=== PATIENT | female | born 1980 | race African-American/Black ===

== ENCOUNTER 2018-03-04 23:58 | Emergency (ER) | payer MEDICAID ==
[~2018-03-04] VITALS: Ht 172.7 cm; Wt 137.0 kg
[~2018-03-04 23:58] MED LIST: LITHIUM; SEROQUEL
[2018-03-05 00:56] LABS: CLARITY URINE CLEAR (CLEAR); COLOR URINE YELLOW (YELLOW); KETONES URINE NEGATIVE (NEGATIVE); LEUKOCYTE ESTERASE URINE NEGATIVE (NEGATIVE); NITRITE URINE NEGATIVE (NEGATIVE); OCCULT BLOOD URINE 2+ (NEGATIVE); PROTEIN URINE 1+ (NEGATIVE); SPECIFIC GRAVITY URINE 1.026 (1.005-1.030); UROBILINOGEN URINE 0.2 E.U./dL (0.2-1.0)
[2018-03-05 01:02] LABS: BASOPHILS % 0.8 % (0.0-2.0); EOSINOPHILS % 7.9 % (0.0-5.0); HEMATOCRIT. 35.8 % (36.0-48.0); HEMOGLOBIN. 11.8 g/dL (12.0-16.0); MEAN CORPUSCULAR HEMOGLOBIN 27.4 pg (28.0-32.0); MEAN CORPUSCULAR VOLUME 83.2 fL (81.0-99.0); MONOCYTES % 7.7 % (2.0-8.0); NEUTROPHILS % 53.6 % (40.0-76.0); PLATELET 182 x1000/uL (130-400); RED CELL DISTRIBUTION WIDTH 17.4 % (11.6-14.6)
[2018-03-05 01:05] LABS: CHLORIDE 108 mEq/L (98-107)
[2018-03-05 01:07] LABS: *AMPHETAMINES SCREEN URINE NEGATIVE (NEGATIVE); *BARBITURATES SCREEN URINE NEGATIVE (NEGATIVE); *BENZODIAZEPINES SCREEN URINE NEGATIVE (NEGATIVE); *COCAINE SCREEN URINE NEGATIVE (NEGATIVE); METHADONE URINE SCREEN NEGATIVE (NEGATIVE); OPIATES URINE SCREEN NEGATIVE (NEGATIVE)
[2018-03-05 01:08] LABS: CANNABINOID URINE SCREEN NEGATIVE (NEGATIVE)
[2018-03-05 01:09] LABS: ETHANOL BLOOD < 10 mg/dL
[2018-03-05 01:23] VITALS: BP 170/102
[2018-03-05 01:23] LABS: PHENCYCLIDINE URINE SCREEN PRESUMTIVE POSITIVE (NEGATIVE)
== END 2018-03-05 01:40 | disposition home or self-care (01) ==
LOC: ER 23:58
DX: R41.82 Altered mental status, unspecified (principal); E11.9 Type 2 diabetes mellitus without complications; F32.9 Major depressive disorder, single episode, unspecified
CPT/HCPCS: 36415; 80053; 80305; 81003; 81025; 84443; 85025; 93005; 99285; G0482; Z7610

== ENCOUNTER 2018-03-17 02:08 | Emergency (ER) | payer MEDICAID ==
[~2018-03-17] VITALS: Ht 177.8 cm; Wt 122.0 kg
[2018-03-17 03:42] VITALS: BP 199/115
== END 2018-03-17 05:25 | disposition home or self-care (01) ==
LOC: ER 02:08
DX: R41.82 Altered mental status, unspecified (principal)
CPT/HCPCS: 99283; 99284

== ENCOUNTER 2018-10-09 17:47 | Emergency (ER) | payer MEDICAID ==
[~2018-10-09] VITALS: Ht 177.8 cm; Wt 150.0 kg
[~2018-10-09 17:47] MED LIST changes: +ACETAMINOPHEN 325MG TABLET ONE
[2018-10-09] MEDS ORDERED: KETOROLAC 30MG/ML VIAL IV STA (18:47)
[2018-10-09] MEDS ORDERED: SODIUM CHLORIDE 0.9% 1000ML BAG (SEPSIS BOLUS) IV ONE (19:00)
[2018-10-09 21:29] LABS: BASOPHILS % 0.2 % (0.0-2.0); EOSINOPHILS % 3.5 % (0.0-5.0); HEMATOCRIT. 37.5 % (36.0-48.0); HEMOGLOBIN. 12.2 g/dL (12.0-16.0); LYMPHOCYTES % 7.1 % (20.0-50.0); MEAN CORPUSCULAR HEMOGLOBIN 27.3 pg (28.0-32.0); MEAN CORPUSCULAR VOLUME 83.7 fL (81.0-99.0); MEAN PLATELET VOLUME 9.5 fl (7.4-10.4); MONOCYTES % 9.3 % (2.0-8.0); NEUTROPHILS % 79.9 % (40.0-76.0); PLATELET 127 x1000/uL (130-400); RED BLOOD CELL COUNT 4.48 mill/uL (4.2-5.4); RED CELL DISTRIBUTION WIDTH 16.4 % (11.6-14.6)
[2018-10-09 21:35] LABS: CHLORIDE 104 mEq/L (98-107)
[2018-10-10 00:12] VITALS: BP 177/97
== END 2018-10-10 00:28 | disposition home or self-care (01) ==
LOC: ER 17:47
DX: J06.9 Acute upper respiratory infection, unspecified (principal); M79.10 Myalgia, unspecified site; R00.0 Tachycardia, unspecified; F31.9 Bipolar disorder, unspecified
CPT/HCPCS: 36415; 71045; 80053; 81025; 83605; 84145; 85025; 87040; 87070; 87430; 87804; 93005; 96374; 99284; J1885

== ENCOUNTER 2018-12-13 02:11 | Emergency (ER) | payer MEDICAID ==
[~2018-12-13] VITALS: Ht 175.3 cm; Wt 118.0 kg
[~2018-12-13 02:11] MED LIST changes: -ACETAMINOPHEN 325MG TABLET ONE
[2018-12-13] MEDS ORDERED: OLANZAPINE 10 MG/VIAL IM STA (03:28)
[2018-12-13] MEDS ORDERED: ONDANSETRON HCL 4MG/2ML INJ IV STA (03:28)
[2018-12-13] MEDS ORDERED: SODIUM CHLORIDE 0.9% 1,000 ML IV ONE ×2 (03:28)
[2018-12-13 03:50] LABS: BASOPHILS % 0.3 % (0.0-2.0); EOSINOPHILS % 4.1 % (0.0-5.0); HEMATOCRIT. 40.5 % (36.0-48.0); HEMOGLOBIN. 13.4 g/dL (12.0-16.0); LYMPHOCYTES % 21.5 % (20.0-50.0); MEAN CORPUSCULAR HEMOGLOBIN 27.7 pg (28.0-32.0); MEAN PLATELET VOLUME 8.9 fl (7.4-10.4); MONOCYTES % 9.2 % (2.0-8.0); NEUTROPHILS % 64.9 % (40.0-76.0); PLATELET 252 x1000/uL (130-400); RED BLOOD CELL COUNT 4.82 mill/uL (4.2-5.4); RED CELL DISTRIBUTION WIDTH 17.1 % (11.6-14.6)
[2018-12-13 03:55] LABS: CLARITY URINE CLOUDY (CLEAR); COLOR URINE YELLOW (YELLOW); KETONES URINE NEGATIVE (NEGATIVE); LEUKOCYTE ESTERASE URINE NEGATIVE (NEGATIVE); NITRITE URINE NEGATIVE (NEGATIVE); OCCULT BLOOD URINE TRACE (NEGATIVE); PH URINE 5.5 (4.5-8.0); PROTEIN URINE 2+ (NEGATIVE); SPECIFIC GRAVITY URINE 1.031 (1.005-1.030)
[2018-12-13 03:58] LABS: CHLORIDE 107 mEq/L (98-107)
[2018-12-13 04:02] LABS: ETHANOL BLOOD < 10 mg/dL
[2018-12-13 04:26] LABS: METHADONE URINE SCREEN NEGATIVE (NEGATIVE)
[2018-12-13 04:27] LABS: *AMPHETAMINES SCREEN URINE NEGATIVE (NEGATIVE); *BARBITURATES SCREEN URINE NEGATIVE (NEGATIVE); *COCAINE SCREEN URINE NEGATIVE (NEGATIVE); CANNABINOID URINE SCREEN NEGATIVE (NEGATIVE); OPIATES URINE SCREEN NEGATIVE (NEGATIVE)
[2018-12-13 04:30] LABS: *BENZODIAZEPINES SCREEN URINE PRESUMTIVE POSITIVE (NEGATIVE); PHENCYCLIDINE URINE SCREEN PRESUMTIVE POSITIVE (NEGATIVE)
[2018-12-13] MEDS ORDERED: LORAZEPAM 1MG TABLET PO ONE (09:45)
[2018-12-13 10:35] VITALS: BP 149/71
== END 2018-12-13 10:55 | disposition home or self-care (01) ==
LOC: ER 02:11
DX: G93.40 Encephalopathy, unspecified (principal); V49.49XA Driver injured in collision with other motor vehicles in traffic accident, initial encounter; Y93.89 Activity, other specified; Y92.89 Other specified places as the place of occurrence of the external cause; Y99.8 Other external cause status
CPT/HCPCS: 36415; 70450; 71045; 74176; 80053; 80305; 80307; 80320; 80329; 81003; 81025; 85025; 96372; 96374; 99284; J2405; J3490; J7030; G0480

== ENCOUNTER 2019-07-01 23:16 | Emergency (ER) | payer MEDICAID ==
[~2019-07-01] VITALS: Ht 177.8 cm; Wt 163.1 kg
[2019-07-02 02:07] VITALS: BP 151/91
== END 2019-07-02 02:17 | disposition home or self-care (01) ==
LOC: ER 23:16
DX: J06.9 Acute upper respiratory infection, unspecified (principal); J02.9 Acute pharyngitis, unspecified; I10 Essential (primary) hypertension
CPT/HCPCS: 71045; 87070; 87430; 99283

== ENCOUNTER 2019-10-29 10:17 | Emergency (ER) | payer MEDICAID ==
[~2019-10-29] VITALS: Ht 180.3 cm; Wt 163.0 kg
[2019-10-29 14:09] LABS: BASOPHILS % 0.9 % (0.0-2.0); EOSINOPHILS % 4.5 % (0.0-5.0); HEMATOCRIT. 36.8 % (36.0-48.0); HEMOGLOBIN. 12.2 g/dL (12.0-16.0); LYMPHOCYTES % 27.5 % (20.0-50.0); MEAN CORPUSCULAR HEMOGLOBIN 27.2 pg (28.0-32.0); MEAN CORPUSCULAR VOLUME 82.2 fL (81.0-99.0); MONOCYTES % 6.8 % (2.0-8.0); NEUTROPHILS % 60.3 % (40.0-76.0); PLATELET 169 x1000/uL (130-400); RED BLOOD CELL COUNT 4.47 mill/uL (4.2-5.4); RED CELL DISTRIBUTION WIDTH 16.7 % (11.6-14.6)
[2019-10-29 14:15] LABS: CHLORIDE 109 mEq/L (98-107)
[2019-10-29] MEDS: AMLODIPINE 5MG TABLET PO NR ×2 (14:45→16:01)
[2019-10-29] MEDS ORDERED: HYDROCODONE/ACETAMINOPHEN 5/325MG TABLET PO ONE (15:30)
[2019-10-29 15:59] VITALS: BP 180/86
== END 2019-10-29 16:36 | disposition left against medical advice (07) ==
LOC: ER 10:17 → CANBEDREQ 18:33
DX: E87.70 Fluid overload, unspecified (principal); I10 Essential (primary) hypertension
CPT/HCPCS: 36415; 71045; 80053; 81025; 83880; 84484; 85025; 85379; 93005; 99285

== ENCOUNTER 2019-11-06 11:09 | Emergency (ER) | payer MEDICAID ==
[~2019-11-06] VITALS: Ht 180.3 cm; Wt 167.2 kg
[2019-11-06 11:15] VITALS: BP 182/98
[2019-11-06] MEDS ORDERED: FUROSEMIDE 20MG TABLET PO ONE (14:00)
[2019-11-06 15:34] LABS: BASOPHILS % 0.7 % (0.0-2.0); EOSINOPHILS % 5.9 % (0.0-5.0); HEMATOCRIT. 37.4 % (36.0-48.0); HEMOGLOBIN. 12.2 g/dL (12.0-16.0); LYMPHOCYTES % 36.6 % (20.0-50.0); MEAN CORPUSCULAR HEMOGLOBIN 26.8 pg (28.0-32.0); MEAN PLATELET VOLUME 9.2 fl (7.4-10.4); MONOCYTES % 9.2 % (2.0-8.0); NEUTROPHILS % 47.6 % (40.0-76.0); PLATELET 186 x1000/uL (130-400); RED BLOOD CELL COUNT 4.56 mill/uL (4.2-5.4); RED CELL DISTRIBUTION WIDTH 17.3 % (11.6-14.6)
[2019-11-06 15:37] LABS: CHLORIDE 105 mEq/L (98-107)
== END 2019-11-06 16:31 | disposition home or self-care (01) ==
LOC: ER 11:09
DX: R05 Cough (principal); R06.02 Shortness of breath; R60.0 Localized edema; F99 Mental disorder, not otherwise specified
CPT/HCPCS: 36415; 71046; 80053; 81025; 83880; 85025; 99284

== ENCOUNTER 2020-03-16 03:00 | Emergency (ER) | payer MEDICAID ==
[~2020-03-16] VITALS: Ht 175.3 cm; Wt 155.0 kg
[2020-03-16] MEDS ORDERED: IBUPROFEN 600MG TABLET PO STA (04:17)
[2020-03-16 08:42] VITALS: BP 181/97
== END 2020-03-16 08:46 | disposition home or self-care (01) ==
LOC: ER 03:00
DX: M25.572 Pain in left ankle and joints of left foot (principal); I11.0 Hypertensive heart disease with heart failure; I50.9 Heart failure, unspecified
CPT/HCPCS: 73610; 99283; Z7610

== ENCOUNTER 2022-03-26 05:54 | Emergency (ER) | payer MEDICAID ==
[~2022-03-26] VITALS: Ht 170.2 cm; Wt 150.0 kg
[2022-03-26] MEDS ORDERED: SODIUM CHLORIDE 0.9% 1,000 ML IV ONE (07:00)
[2022-03-26 08:00] VITALS: BP 174/110
[2022-03-26 08:15] LABS: BASOPHILS % 0.2 % (0.0-2.0); EOSINOPHILS % 0.8 % (0.0-5.0); HEMATOCRIT. 44.7 % (36.0-48.0); MEAN CORPUSCULAR HEMOGLOBIN 29.1 pg (28.0-32.0); MEAN PLATELET VOLUME 10.7 fl (7.4-10.4); PLATELET 203 x1000/uL (130-400); RED BLOOD CELL COUNT 5.14 mill/uL (4.2-5.4)
[2022-03-26 08:21] LABS: CHLORIDE 101 mEq/L (98-107)
[2022-03-26 08:25] LABS: HCG SCREEN NEGATIVE
[2022-03-26 08:30] LABS: ETHANOL BLOOD < 10 mg/dL
[2022-03-26 08:34] LABS: COLOR URINE YELLOW (YELLOW)
[2022-03-26 08:35] LABS: CLARITY URINE SL HAZY (CLEAR); SPECIFIC GRAVITY URINE 1.034 (1.005-1.030)
[2022-03-26 08:38] LABS: KETONES URINE TRACE (NEGATIVE); NITRITE URINE NEGATIVE (NEGATIVE); OCCULT BLOOD URINE 1+ (NEGATIVE); PROTEIN URINE 2+ (NEGATIVE); UROBILINOGEN URINE 0.2 E.U./dL (0.2-1.0)
[2022-03-26 08:39] LABS: LEUKOCYTE ESTERASE URINE 1+ (NEGATIVE)
[2022-03-26 09:14] LABS: *AMPHETAMINES SCREEN URINE NEGATIVE (NEGATIVE); *BARBITURATES SCREEN URINE NEGATIVE (NEGATIVE); *BENZODIAZEPINES SCREEN URINE NEGATIVE (NEGATIVE); *COCAINE SCREEN URINE NEGATIVE (NEGATIVE); CANNABINOID URINE SCREEN NEGATIVE (NEGATIVE); METHADONE URINE SCREEN NEGATIVE (NEGATIVE); OPIATES URINE SCREEN NEGATIVE (NEGATIVE)
[2022-03-26] MEDS ORDERED: INSULIN LISPRO 100 UNITS/ML SUBCUT SCH (09:15)
[2022-03-26 09:24] LABS: PHENCYCLIDINE URINE SCREEN PRESUMTIVE POSITIVE (NEGATIVE)
[2022-03-26] MEDS ORDERED: CEFTRIAXONE 1 G PREMIX 50 ML IV SCH (10:00)
[2022-03-26] MEDS ORDERED: NITR-87 MT (12:18)
== END 2022-03-26 12:50 | disposition home or self-care (01) ==
LOC: ER 06:09
DX: T40.991A Poisoning by other psychodysleptics [hallucinogens], accidental (unintentional), initial encounter (principal); G92.8 Other toxic encephalopathy; R73.9 Hyperglycemia, unspecified; N39.0 Urinary tract infection, site not specified; I10 Essential (primary) hypertension; Y92.488 Other paved roadways as the place of occurrence of the external cause
CPT/HCPCS: 36415; 80053; 80305; 80320; 81003; 82962; 84703; 85025; 87086; 93005; 96361; 96365; 96372; 99284; J0696; J1815; J7030; G0480